=== PATIENT | female | born 1975 | race Caucasian/White ===

== ENCOUNTER → 2017-02-11 | Outpatient (CLI) | payer OTHER ==
--- NOTE | 2017-02-11 17:23 | US ---
History: Right breast nodule. DATE OF SERVICE: 02/11/2017 Services provided: Full field digital bilateral diagnostic mammography. CAD, the images were reviewed with R2 computer aided detection. Directed Limited right breast sonography. FINDINGS: Routine views are compared with 2015 exam. Palpable change on the right corresponds to a well-defined 2.7 cm oval nodule retroareolar right breast 8:00. This has enlarged since the more remote study. No associated microcalcifications. No left breast mammographic abnormality. Directed physical examination demonstrates a focal palpable nodule corresponding to the mammographic mass. Sonographically this corresponds to a lobulated 2.7 cm solid nodule with internal vascularity. Some cystic components are identified within the well-defined mass which has enlarged since the ultrasound exam performed in 2015. Differential considerations include enlarging fibroadenoma, phylloides tumor or less likely malignancy. Patient indicates she has had a tumor removed from her left axilla which has returned. Physical exam suggests that it is a lipoma. She was reassured as to its likely benign nature. IMPRESSION: Suspicious exam. Enlarging solid nodule right breast periareolar 8:00. Recommendation: Ultrasound-guided needle sampling. The findings and recommendations were discussed with the patient. BIRAD CATEGORY: 4 SUSPICIOUS FINDINGS Electronically signed by: Denise Smart MD 02/11/2017 5:23 PM CDT
== END ==
LOC: MAMMO 16:36
PROVIDERS: ATTEND Family Medicine
DX: N63 Unspecified lump in breast (principal)

== ENCOUNTER → 2018-08-18 | Outpatient (CLI) | payer OTHER | LOC: GMATM 14:44 | PROVIDERS: ATTEND Nurse Practitioner Family | DX: R30.0 Dysuria (principal) ==

== ENCOUNTER 2018-11-09 11:09 | Emergency (ER) | payer OTHER ==
[2018-11-09] MEDS ORDERED: EPINEPHrine HCL AMP 1 MG/ML AMP ONE (11:15)
--- NOTE | 2018-11-09 11:19 | ED.PDOC ---
History of Present Illness - General Time Seen by Provider: 11/09/18 11:13 Source: patient Exam Limitations: no limitations Additional Information: PT C/O ALLERGIC REACTION - History of Present Illness Initial Comments: PT HAD COUGH AND FEVER. SAW PCP THIS WEEKEND. WAS GIVEN ROCEPHIN AND STARTED ON CEFNIDIR. NOW C/O RASH, COUGH WORSE TODAY. SENSATION TONGUE AND THROAT ARE SWOLLEN. ALSO HAS RASH TO ABDOMEN. Severity: moderate Improving Factors: nothing Worsening Factors: other - FEELS LIKE ITS PROGRESSING. Associated Symptoms: cough Allergies/Adverse Reactions: Allergies NO KNOWN ALLERGY Allergy (Unverified 04/16/14 15:58) Home Medications: Ambulatory Orders Doxycycline (Monohydrate) [Doxycycline Monohydrate] 100 mg PO BID #20 cap 11/09/18 Methylprednisolone [Medrol Dose Neel] 4 mg PO DAILY #1 tab 11/09/18 guaiFENesin W/CODEINE LIQ [Robitussin AC] 10 ml PO Q6HR PRN #120 ml 11/09/18 Review of Systems - Review of Systems Constitutional: Denies: chills, fever - SINCE STARTING ABX. EENTM: States: other - SENSATION TONGUE AND THROAT ARE SWELLING Respiratory: States: cough, wheezing Cardiology: Denies: chest pain, palpitations Gastrointestinal/Abdominal: Denies: abdominal pain, nausea, vomiting Genitourinary: States: no symptoms reported Musculoskeletal: States: no symptoms reported Skin: States: no symptoms reported Neurological: States: no symptoms reported Endocrine: States: no symptoms reported Hematologic/Lymphatic: States: no symptoms reported Past Medical History (General) - Patient Medical History Hx Seizures: No Hx Stroke: No Hx Dementia: No Hx Asthma: No Hx of COPD: No Hx Cardiac Disorders: No Hx Congestive Heart Failure: No Hx Pacemaker: No Hx Hypertension: No Hx Thyroid Disease: No Hx Diabetes: No Hx Gastroesophageal Reflux: No Hx Renal Disease: No Hx Cancer: No Hx of HIV: No Hx Hepatitis C: No Hx MRSA: No - Vaccination History Hx Influenza Vaccination: No - Social History Hx Tobacco Use: No Hx Alcohol Use: No Hx Substance Use: No Hx Substance Use Treatment: No Hx Depression: No Family Medical History - Family History Mother Family History: No Known Physical Exam - Physical Exam General Appearance: Alert, Anxious, No apparent distress Eye Exam: bilateral normal Ears, Nose, Throat: normal ENT inspection, other - TM'S NL, OP, TONGUE NL, NO EDEMA, POST PHARYNX WIDELY PATENT. Neck: non-tender, supple, normal inspection Respiratory: no accessory muscle use, other - OCC EXP WHEEZE, MILD INCREASED EXP PHASE, RLL RALES. Cardiovascular/Chest: regular rate, rhythm, no murmur Gastrointestinal/Abdominal: normal bowel sounds, non tender, soft, no organomegaly Back Exam: normal inspection, no CVA tenderness Extremity: normal range of motion, non-tender, no pedal edema Neurologic: alert, normal mood/affect, other - SLIGHTLY ANXIOUS Skin Exam: normal color, warm/dry, other - SLIGHTLY DIAPHORETIC Lymphatic: no adenopathy Progress - Progress Progress: 11/09/18 12:23 CXR RLL INFILTRATE FEELS BETTER. LUNGS WITHOUT WHEEZES, RLL RALES STILL PRESENT. - EKG/XRAY/CT XRAY: chest - RLL INFILTRATE Departure - Departure Clinical Impression: Acute bronchospasm RLL pneumonia Qualifiers: Pneumonia type: due to unspecified organism Qualified Code(s): J18.1 - Lobar pneumonia, unspecified organism Allergic reaction Qualifiers: Encounter type: initial encounter Qualified Code(s): T78.40XA - Allergy, unspecified, initial encounter Time of Disposition: 12:35 Disposition: Discharge to Home or Self Care Condition: Good Referrals: Andrea Cruz MD [Primary Care Provider] - 1-2 Weeks Prescriptions: guaiFENesin W/CODEINE LIQ [Robitussin AC] 10 ml PO Q6HR PRN #120 ml PRN Reason: Cough Doxycycline (Monohydrate) [Doxycycline Monohydrate] 100 mg PO BID #20 cap Methylprednisolone [Medrol Dose Neel] 4 mg PO DAILY #1 tab Home Medications: Ambulatory Orders Doxycycline (Monohydrate) [Doxycycline Monohydrate] 100 mg PO BID #20 cap 11/09/18 Methylprednisolone [Medrol Dose Neel] 4 mg PO DAILY #1 tab 11/09/18 guaiFENesin W/CODEINE LIQ [Robitussin AC] 10 ml PO Q6HR PRN #120 ml 11/09/18
[2018-11-09] MEDS ORDERED: FAMOTIDINE IV PREMIX 20 MG in PREMIX BAG 1 BAG IVPB ONE (11:20)
[2018-11-09] MEDS ORDERED: IPRATROPIUM/ALBUTEROL 3 ML VIAL NEB ONE (11:20)
[2018-11-09] MEDS ORDERED: EPINEPHrine HCL AMP 1 MG/ML AMP SUBCU ONE (11:20)
[2018-11-09] MEDS ORDERED: FAMOTIDINE IV PREMIX 50 ML IVPB ONE (11:31)
--- NOTE | 2018-11-09 11:39 | RAD ---
EXAM DESCRIPTION: Chest,1 View CLINICAL HISTORY: 43 years Female, COUGH, SOB, RLL RALES. COMPARISON: None. IMPRESSION: Heart size and pulmonary vascularity are within normal limits. Patchy airspace consolidation in the right lower lung zone, consistent with pneumonia. Recommend follow-up imaging after therapy to confirm resolution. No large pleural effusion or pneumothorax. No acute osseous abnormality. Electronically signed by: Chip Khan MD 11/09/2018 11:38 AM WATCH TRAIN [employer]SEM[employer]ER
[2018-11-09 11:50] VITALS: TEMP 98.7
[2018-11-09 12:30] VITALS: BP 123/89
[2018-11-09 13:52] VITALS: O2SAT 100
== END 2018-11-09 12:52 | disposition home or self-care (01) ==
LOC: ER 11:09
DX: L27.0 Generalized skin eruption due to drugs and medicaments taken internally (principal); T36.1X5A Adverse effect of cephalosporins and other beta-lactam antibiotics, initial encounter; J18.9 Pneumonia, unspecified organism; J98.01 Acute bronchospasm
CPT/HCPCS: 71045; 94640; J3490; J7620

== ENCOUNTER → 2019-04-04 | Outpatient (CLI) | payer OTHER ==
--- NOTE | 2019-04-05 17:27 | MAM ---
EXAM DESCRIPTION: 3D Screening BILATERAL : Digital Mammography. CLINICAL HISTORY: 43 years Female ANNUAL SCREENING . Excisional biopsy March 2017 with pathology report: fibroadenoma. No complaints or personal history of breast cancer. Remote family history of breast cancer. Hysterectomy. Childbirth. No HRT. Axillary mass under left arm. Lifetime risk of developing breast cancer (Tyrer-Cuzick model)(%): 11.3. COMPARISON: 2-D digital diagnostic bilateral mammography 02/11/2017. Diagnostic right breast ultrasound on the same visit. TECHNIQUE: Bilateral CC and MLO projection full-field images, digital tomosynthesis mammographic technique. Bilateral digital 2-D full-field MLO images. CAD not available for tomosynthesis or 2-D images. FINDINGS: The breast parenchymal density pattern is: Heterogeneously dense breast tissue, which may obscure small masses. Extremely dense breast tissue, which lowers the sensitivity of mammography. No skin thickening or nipple retraction. . Bilateral axillary lymph nodes. Larger lymph nodes in the left axilla are stable. No separate mammographic abnormality in the included left axilla. Bilateral solitary microcalcifications. The mass in the anterior lower outer quadrant of the right breast seen on the prior study has been excised. Focal asymmetry of tissue is present. No new focal, stellate mass or density, focal asymmetry , and no suspicious microcalcifications bilaterally. IMPRESSION: This examination unable to image the region of concern in the posterior left axilla. ASSESSMENT: BI-RADS CATEGORY: 0 - INCOMPLETE- Need additional imaging evaluation. FOLLOW-UP: Recall for additional imaging: Targeted left ultrasound of the palpable mass posterior left axilla.. Written communication concerning the IMPRESSION and Follow-up, will be mailed to the patient and referring health care provider. Electronically signed by: Chico Whalen MD 04/05/2019 5:25 PM CDT
== END ==
LOC: MAMMO 13:01
PROVIDERS: ATTEND Family Medicine
DX: Z12.31 Encounter for screening mammogram for malignant neoplasm of breast (principal)

== ENCOUNTER 2019-05-25 05:30 | Day surgery (SDC) | payer OTHER ==
[2019-05-25] MEDS ORDERED: LIDOCAINE 1% 10 ML VIAL INJ ONE (07:00)
[2019-05-25] MEDS ORDERED: PROPOFOL 200 MG/20 ML VIAL IV ONE (07:00)
[2019-05-25] MEDS ORDERED: DEXAMETHASONE INJ 10 MG/ML VIAL ONE (07:00)
[2019-05-25] MEDS ORDERED: raNITIdine HCL INJ 25 MG/ML VIAL ONE (07:00)
[2019-05-25] MEDS: LACTATED RINGERS 1,000 ML ONE (07:25)
[2019-05-25] MEDS ORDERED: MIDAZOLAM INJ 2 MG/2 ML VIAL ONE (07:59)
[2019-05-25] MEDS ORDERED: fentaNYL CITRATE INJ 50 MCG/ML AMP ONE (07:59)
[2019-05-25] MEDS ORDERED: KETAMINE HCL 100 MG/ML VIAL ONE (07:59)
[2019-05-25] MEDS: BUPIVACAINE 0.5% W/EPI 30 ML VIAL INJ ONE (08:37)
--- NOTE | 2019-05-25 09:10 | OP ---
DATE OF PROCEDURE: 05/25/19 PREOPERATIVE DIAGNOSIS: 1. Recurrent left lateral thorax subcutaneous mass. POSTOPERATIVE DIAGNOSIS: 1. Recurrent left lateral thorax subcutaneous mass. PROCEDURE: 1. Excision of left subcutaneous mass, 5 x 4 cm. SURGEON: Leo Rivas MD. ANESTHESIA: General and local. FINDINGS: There was scar tissue, but was a well-formed fatty tumor. No evidence of residual. COMPLICATIONS: None. CONDITION: Stable. PLAN: Discharge. INDICATION: This is a woman who had had a previous excision of a mass in this area with an overlying scar, but now with an obvious palpable area that is getting larger. She has consented for removal. PROCEDURE: General anesthesia was induced. She was prepped and draped in sterile fashion. Incision was made over the palpable lesion after injecting with local anesthesia. Subcutaneous tissues were taken down and I was able to shell out both with cautery and blunt and sharp dissection. I shelled out the entire area and removed the mass completely. There was no significant bleeding. The wound was closed with running 4-0 Monocryl. Dressing was applied. She was awakened and taken to Recovery to be discharged. #[id number] [facility]
[2019-05-25 14:34] VITALS: BP 112/79; TEMP 97.4; O2SAT 95
== END 2019-05-25 10:20 | disposition home or self-care (01) ==
LOC: AMB 05:30
PROVIDERS: ATTEND Surgery
DX: D17.22 Benign lipomatous neoplasm of skin and subcutaneous tissue of left arm (principal); Z88.0 Allergy status to penicillin; Z88.1 Allergy status to other antibiotic agents
CPT/HCPCS: 00300; 21554; J1100; J2250; J2780; J3010; J3490; J7120

== ENCOUNTER → 2019-06-27 | Outpatient (CLI) | payer OTHER ==
--- NOTE | 2019-06-27 14:04 | CT ---
EXAM DESCRIPTION: Head CLINICAL HISTORY: FACIAL NUMBNESS, PARATHESIA COMPARISON: None available TECHNIQUE: Noncontrast head CT was performed with routine protocol. FINDINGS: Normal gupta-white matter differentiation. Ventricles and sulci are normal for age. No high density hemorrhage, focal edema or shift of the midline. No sulcal effacement. Normal orbital contents. Basilar cisterns appear clear. Intact calvarium with no fracture or lytic lesion. Normal aeration of tympanic cavities and mastoid air cells. No fluid levels in the paranasal sinuses. Skull base appears intact. Symmetrical internal auditory canals. IMPRESSION: No acute intracranial pathologic process. This exam was performed according to our departmental dose-optimization program, which includes automated exposure control, adjustment of the mA and/or kV according to patient size and/or use of iterative reconstruction technique. Total DLP equals 859.97 mGycm. Electronically signed by: Marlon Goldberg MD 06/27/2019 2:02 PM CDT
== END ==
LOC: CT 12:13
PROVIDERS: ATTEND Family Medicine
DX: R20.9 Unspecified disturbances of skin sensation (principal)

== ENCOUNTER → 2019-07-13 | Outpatient (CLI) | payer OTHER ==
--- NOTE | 2019-07-14 09:12 | MRI ---
EXAM DESCRIPTION: Cervical Spine: MRI. CLINICAL HISTORY: 43 years Female cervical disc disorder COMPARISON: MRI scan of the brain on the same visit. TECHNIQUE: Multiplanar, high-field MRI, multiple sequences, non-contrast Cervical spine. FINDINGS: C3-C4: Disc desiccation and minimal disc space loss. Anterior bulging and minimal endplate reaction and spurs. Right posterior bulge of the disc and uncinate spur abutting the right foramen which is minimally narrowed. Canal and left neuroforamen are patent. C4-C5: Disc desiccation and minimal disc space loss. Mild anterior endplate reaction. No posterior bulge. Canal and neural foramina are patent. C5-C6: Disc desiccation and minimal disc space loss. Endplate reaction superior C6 endplate. Bilateral uncinate spurs larger on the right with disc bulge into the foramen and borderline neural foraminal stenosis. Left neuroforamen and canal are patent. Normal signal in the remaining discs with no bulging. Disc spaces preserved. Canal and neural foramina are patent. Facet joints are unremarkable. Spinal alignment slightly kyphotic.. No cord compression or cord edema. Atlantoaxial joint negative.. Base of the cerebellar tonsils is at the level of the foramen magnum. Paravertebral soft tissues show a 1.1 cm hyperintense nodule in the left thyroid lobe.. Vertebral bodies are not compressed at any level. Normal marrow signal in the remaining vertebral bodies and the posterior elements. IMPRESSION: 1. Right posterior C3-C4 disc bulge and uncinate spur abutting the right foramen and the right C4 nerve. 2. Uncinate spur right C5-C6 disc space and bulging disc with borderline right neural foraminal stenosis. 3. 1.1 cm incidental thyroid nodule. No follow-up imaging is recommended. Reference: J Am Silverio Radiol. 2015 Dec;12(2): 143-50 Electronically signed by: Chico Whalen MD 07/14/2019 9:10 AM CDT
--- NOTE | 2019-07-14 09:28 | MRI ---
EXAM DESCRIPTION: Brain w/wo Contrast: Magnetic Resonance Imaging. CLINICAL HISTORY: 43 years Female MIGRAINE WITH AURA G43.109 COMPARISON: MRI scan cervical spine on this visit. CT scan of the head 06/27/2019. TECHNIQUE: Multiplanar, high-field MRI, multiple conventional sequences, without and with gadolinium IV contrast. No adverse reactions. Multiple axial diffusion sequences. FINDINGS: Normal FLAIR and T2-weighted signal in the periventricular white matter and gupta-white matter junctions of the cerebral hemispheres. . Normal signal in the bilateral basal ganglia. No hemorrhage, no cerebral edema, no mass-effect. Normal contrast enhancement. Normal signal in the brainstem and cerebellar hemispheres. No hemorrhage, no cerebral edema, no mass-effect. Normal contrast enhancement. Concordance of the diffusion and non-diffusion sequences with no evidence of acute or subacute infarction. Cortical sulci, ventricles, and other CSF spaces, and the subdural spaces are normally configured.. No effacement or displacement. No midline shift. No extra-axial hemorrhage. Normal contrast enhancement. Normal flow signal void in the major vessels of the [place], and the venous sinuses. Left vertebral artery is dominant. IACs are symmetric bilaterally. Tiny focus of fluid or edema in one of the right mastoid air cells. No mass effect in the bilateral Cerebellopontine angles. Normal contrast enhancement. Pituitary gland occupies most of the sella. Normal contrast enhancement. Minimal edema without enhancement in the bilateral distal optic nerve sheaths abutting the optic globes. No abnormal enhancement. Base of the cerebellar tonsils is at the level of the foramen magnum. Normal signal in the paranasal sinuses. The bony calvarium is intact. IMPRESSION: 1. Normal MRI scan of the brain without and with gadolinium IV contrast. No intra-axial extra-axial hemorrhage, no mass effect, no midline shift, no abnormal contrast enhancement. Specifically, no sequela of migraine headaches are observed. There is minimal edema in the bilateral distal optic nerve sheaths. 2. Normal noncontrast MRI diffusion scan with no evidence of acute or subacute significant ischemia or infarction. Electronically signed by: Chico Whalen MD 07/14/2019 9:26 AM CDT
== END ==
LOC: MRI 08:56
PROVIDERS: ATTEND Psychiatry & Neurology Neurology
DX: Z01.812 Encounter for preprocedural laboratory examination (principal); G43.109 Migraine with aura, not intractable, without status migrainosus; M50.123 Cervical disc disorder at C6-C7 level with radiculopathy; M46.02 Spinal enthesopathy, cervical region; E04.1 Nontoxic single thyroid nodule

== ENCOUNTER → 2020-08-28 | Outpatient (CLI) | payer BC, OTHER ==
--- NOTE | 2020-08-29 16:50 | MAM ---
EXAM DESCRIPTION: 3D Screening BILATERAL : Digital Mammography. CLINICAL HISTORY: 44 years Female SCREENING . No complaints. Remote family history of breast cancer. Menarche age 12. Childbirth age 22. Hysterectomy age 39. No HRT. Prior biopsy benign right breast. COMPARISON: Bilateral screening digital breast tomosynthesis and diagnostic left breast tomosynthesis April 2019. Diagnostic right breast 2-D imaging January 2017.. No prior reports available. TECHNIQUE: Bilateral CC and MLO projection full-field images, digital tomosynthesis mammographic technique. Bilateral digital 2-D full-field MLO images. and CC images. CAD available for 2-D images. FINDINGS: The breast parenchymal density pattern is: Heterogeneously dense breast tissue, which may obscure small masses. No skin thickening or nipple retraction. Bilateral eggshell calcifications. Coarse calcifications. Solitary microcalcifications. Axillary nodes. Focal asymmetry stable in the lower outer quadrant anterior right breast. No new focal, stellate mass or density, focal asymmetry , and no suspicious microcalcifications bilaterally. Stable mammograms compared to prior study. IMPRESSION: Benign exam. BIRAD CATEGORY: 2 BENIGN FINDINGS. RECOMMENDATIONS: FOLLOW UP: Routine digital bilateral mammographic screening, one year interval from August 2020. Written communication explaining the IMPRESSION and follow-up, will be mailed to the patient and referring health care provider. According to the [employer], yearly mammograms are recommended starting at age 40 and continuing as long as a woman is in good health. Any breast change noted on a breast self-exam should be reported promptly to the patient's healthcare provider. Breast MRI is recommended for women with an approximately 20-25% or greater lifetime risk of breast cancer, including women with a strong family history of breast or ovarian cancer and women who have been treated for Hodgkin's disease. A negative mammographic report should not delay tissue diagnosis in patients with significant clinical history or physical findings. Extremely dense breast tissue limits the sensitivity of digital mammography. Electronically signed by: Chico Whalen MD 08/29/2020 4:48 PM CDT
== END ==
LOC: MAMMO 11:30
PROVIDERS: ATTEND Family Medicine
DX: Z12.31 Encounter for screening mammogram for malignant neoplasm of breast (principal)